=== PATIENT | male | born 1965 | race Caucasian/White ===

== ENCOUNTER 2017-08-26 22:48 | Emergency (ER) | payer OTHER ==
[2017-08-26 22:56] VITALS: PULSE 88; RESP 18; TEMP 97.6; O2SAT 99
[2017-08-26 23:54] LABS: AUTOMATED NEUTROPHIL # 8.5 TH/MM3 (1.8-7.7); BASOPHIL # 0.1 TH/MM3 (0-0.2); BASOPHIL % 0.5 % (0.0-2.0); EOSINOPHIL # 0.1 TH/MM3 (0-0.4); HEMATOCRIT 43.2 % (39.0-51.0); HEMOGLOBIN 15.1 GM/DL (13.0-17.0); LYMPH % 11.1 % (9.0-44.0); LYMPHOCYTE # 1.2 TH/MM3 (1.0-4.8); MEAN CELL VOLUME 93.6 FL (80.0-100.0); MEAN CORPUSCULAR HEMOGLOBIN 32.7 PG (27.0-34.0); MONO % 11.6 % (0.0-8.0); MONOCYTE # 1.3 TH/MM3 (0-0.9); NEUT % 75.8 % (16.0-70.0); PLATELET COUNT 167 TH/MM3 (150-450); RED BLOOD COUNT 4.62 MIL/MM3 (4.50-5.90); WHITE BLOOD COUNT 11.2 TH/MM3 (4.0-11.0)
[2017-08-27 00:14] LABS: ALBUMIN 4.6 GM/DL (3.4-5.0); AST (GOT) 22 U/L (15-37); BICARBONATE 23.1 MEQ/L (21.0-32.0); BLOOD UREA NITROGEN 13 MG/DL (7-18); CHLORIDE 102 MEQ/L (98-107); CREATININE 1.07 MG/DL (0.60-1.30); GLOMERULAR FILTRATION RATE 73 ML/MIN (>89); GLUCOSE,RANDOM 114 MG/DL (74-106); SODIUM (NA) 138 MEQ/L (136-145)
[2017-08-27 00:16] LABS: ALT (GPT) 34 U/L (12-78)
[2017-08-27 00:25] LABS: ALKALINE PHOSPHATASE 80 U/L (45-117); TOTAL BILIRUBIN ADULT 0.6 MG/DL (0.2-1.0); TOTAL PROTEIN 8.3 GM/DL (6.4-8.2)
[2017-08-27] MEDS ORDERED: THYRPOW PO (01:04)
[2017-08-27 02:35] VITALS: BP 123/77; PULSE 107; RESP 18; O2SAT 98
--- NOTE | 2017-08-27 06:07 | PD ---
HPI Chief Complaint: Psychiatric Symptoms Time Seen by Provider: 23:04 Travel History International Travel<30 days: No Contact w/Intl Traveler<30days: No Traveled to known affect area: No History of Present Illness HPI 52-year-old white male presents emergency department under a [place] act by PD. The patient had made homicidal statements while in a hotel. The patient here states that this was misconstrued. He states that he had never made any statements directly to hurt anyone or hurt himself. He denies any suicidal homicidal ideation. No toxic ingestions. He does admit to drinking alcohol earlier. No medical complaint. PFSH Past Medical History Medical History: Unable to Obtain Autoimmune Disease: Yes Anxiety: Yes (FEAR OF FLYING) Integumentary: Yes (PSORISIS) Thyroid Disease: Yes Tetanus Vaccination: < 5 Years ?: Not Past Surgical History Surgical History: Unable to Obtain Other Surgery: Yes (HERNIA REPAIR A CHILD) Social History Alcohol Use: Yes (DAILY) Tobacco Use: Yes Substance Use: Yes (NIGHTLY ALCOHOL) Allergies-Medications (Allergen,Severity, Reaction): Coded Allergies: bupropion (Verified Allergy, Unknown, 08/26/17) lisinopril (Verified Allergy, Unknown, 08/26/17) Reported Meds & Prescriptions Reported Meds & Active Scripts Active Reported Thyroid Porcine (Thyroid) 100 % [facility] Pow 75 Mg PO DAILY Review of Systems General / Constitutional: No: Fever Eyes: No: Visual changes HENT: No: Headaches Cardiovascular: No: Chest Pain or Discomfort Respiratory: No: Shortness of Breath Gastrointestinal: No: Abdominal Pain Genitourinary: No: Dysuria Musculoskeletal: No: Pain Skin: No Rash Neurologic: No: Weakness Psychiatric: Positive: Mood Disorder, No: Anxiety, Depression, Suicidal Ideations, Disorder of Thought, Substance Abuse, Homicidal Ideation Endocrine: No: Polydipsia Hematologic/Lymphatic: No: Easy Bruising Physical Exam Narrative GENERAL: Well-nourished, well-developed patient. SKIN: Warm and dry. HEAD: Normocephalic and atraumatic. EYES: No scleral icterus. No injection or drainage. ENT: No nasal drainage noted. Mucous membranes pink. Airway patent. NECK: Supple, trachea midline. Moves head freely without obvious discomfort. CARDIOVASCULAR: Regular rate and rhythm without murmurs, gallops, or rubs. RESPIRATORY: Breath sounds equal bilaterally. No accessory muscle use. GASTROINTESTINAL: Abdomen soft, non-tender, nondistended. EXTREMITIES: No cyanosis or edema. BACK: Nontender without obvious deformity. No CVA tenderness. NEURO: Patient is alert and oriented. no sensorimotor deficits. Nonfocal. Normal speech. PSYCH: No delusions. No auditory or visual hallucinations. Data Data Last Documented VS Vital Signs Date Time Temp Pulse Resp B/P (MAP) Pulse Ox O2 Delivery O2 Flow Rate FiO2 08/27/17 02:35 107 18 123/77 (92) 98 Room Air 08/26/17 22:56 97.6 Orders Orders Complete Blood Count With Diff (08/26/17 23:01) Comprehensive Metabolic Panel (08/26/17 23:01) Psych Screen (08/26/17 23:01) Drug Screen, Random Urine (08/26/17 23:01) Alcohol (Ethanol) (08/26/17 23:01) Thyroid Stimulating Hormone (08/26/17 23:25) Labs Laboratory Tests Test 08/26/17 23:20 08/26/17 23:25 Urine Opiates Screen NEG Urine Barbiturates Screen NEG Urine Amphetamines Screen NEG Urine Benzodiazepines Screen NEG Urine Cocaine Screen NEG Urine Cannabinoids Screen NEG White Blood Count 11.2 TH/MM3 Red Blood Count 4.62 MIL/MM3 Hemoglobin 15.1 GM/DL Hematocrit 43.2 % Mean Corpuscular Volume 93.6 FL Mean Corpuscular Hemoglobin 32.7 PG Mean Corpuscular Hemoglobin Concent 35.0 % Red Cell Distribution Width 13.0 % Platelet Count 167 TH/MM3 Mean Platelet Volume 8.0 FL Neutrophils (%) (Auto) 75.8 % Lymphocytes (%) (Auto) 11.1 % Monocytes (%) (Auto) 11.6 % Eosinophils (%) (Auto) 1.0 % Basophils (%) (Auto) 0.5 % Neutrophils # (Auto) 8.5 TH/MM3 Lymphocytes # (Auto) 1.2 TH/MM3 Monocytes # (Auto) 1.3 TH/MM3 Eosinophils # (Auto) 0.1 TH/MM3 Basophils # (Auto) 0.1 TH/MM3 CBC Comment DIFF FINAL Differential Comment Blood Urea Nitrogen 13 MG/DL Creatinine 1.07 MG/DL Random Glucose 114 MG/DL Total Protein 8.3 GM/DL Albumin 4.6 GM/DL Calcium Level 9.0 MG/DL Alkaline Phosphatase 80 U/L Aspartate Amino Transf (AST/SGOT) 22 U/L Alanine Aminotransferase (ALT/SGPT) 34 U/L Total Bilirubin 0.6 MG/DL Sodium Level 138 MEQ/L Potassium Level 3.6 MEQ/L Chloride Level 102 MEQ/L Carbon Dioxide Level 23.1 MEQ/L Anion Gap 13 MEQ/L Estimat Glomerular Filtration Rate 73 ML/MIN Thyroid Stimulating Hormone 3rd Gen 2.530 uIU/ML Ethyl Alcohol Level 177 MG/DL MDM Medical Decision Making Medical Screen Exam Complete: Yes Emergency Medical Condition: Yes Medical Record Reviewed: Yes Interpretation(s) Laboratory Tests Test 08/26/17 23:20 08/26/17 23:25 Urine Opiates Screen NEG Urine Barbiturates Screen NEG Urine Amphetamines Screen NEG Urine Benzodiazepines Screen NEG Urine Cocaine Screen NEG Urine Cannabinoids Screen NEG White Blood Count 11.2 TH/MM3 Red Blood Count 4.62 MIL/MM3 Hemoglobin 15.1 GM/DL Hematocrit 43.2 % Mean Corpuscular Volume 93.6 FL Mean Corpuscular Hemoglobin 32.7 PG Mean Corpuscular Hemoglobin Concent 35.0 % Red Cell Distribution Width 13.0 % Platelet Count 167 TH/MM3 Mean Platelet Volume 8.0 FL Neutrophils (%) (Auto) 75.8 % Lymphocytes (%) (Auto) 11.1 % Monocytes (%) (Auto) 11.6 % Eosinophils (%) (Auto) 1.0 % Basophils (%) (Auto) 0.5 % Neutrophils # (Auto) 8.5 TH/MM3 Lymphocytes # (Auto) 1.2 TH/MM3 Monocytes # (Auto) 1.3 TH/MM3 Eosinophils # (Auto) 0.1 TH/MM3 Basophils # (Auto) 0.1 TH/MM3 CBC Comment DIFF FINAL Differential Comment Blood Urea Nitrogen 13 MG/DL Creatinine 1.07 MG/DL Random Glucose 114 MG/DL Total Protein 8.3 GM/DL Albumin 4.6 GM/DL Calcium Level 9.0 MG/DL Alkaline Phosphatase 80 U/L Aspartate Amino Transf (AST/SGOT) 22 U/L Alanine Aminotransferase (ALT/SGPT) 34 U/L Total Bilirubin 0.6 MG/DL Sodium Level 138 MEQ/L Potassium Level 3.6 MEQ/L Chloride Level 102 MEQ/L Carbon Dioxide Level 23.1 MEQ/L Anion Gap 13 MEQ/L Estimat Glomerular Filtration Rate 73 ML/MIN Thyroid Stimulating Hormone 3rd Gen 2.530 uIU/ML Ethyl Alcohol Level 177 MG/DL Differential Diagnosis MDM: High Differential diagnoses: Schizophrenia, schizoaffective disorder, bipolar, anxiety, depression, adjustment reaction, mood disorder NOS, ODD, depressive disorder NOS, dementia, dementia with agitation, psychosis NOS, substance induced mood disorder, DMDD, Asperger syndrome, infection,electrolyte abnormality, malingering. Narrative Course Mental health screening discussed with the patient. Psychiatric screen ordered. The patient has been medically cleared. This is medical clearance for psychiatric admission, alcohol intoxication Diagnosis Primary Impression: Medical clearance for psychiatric admission Additional Impression: Alcohol intoxication Condition: Stable Todd Ellison Aug 27, 2017 06:07
--- NOTE | 2017-08-27 14:35 | PD.PSY.CON ---
Provisional Diagnosis Admission Date [place] I. Alcohol induced mood disorder, alcohol use disorder [place] II. Deferred [place] III. Hypertension History of Present Illness Service Psychiatry Consult Requested By ER Reason for Consult Homicidal statements Primary Care Physician No Primary Care Physician HPI Patient was seen today at 11 AM in the morning. The patient is a 52-year-old man, his domiciled in [place], single, employed, he is here in the [facility] for vacations, patient has no previous psychiatric history, no previous suicidal attempts, no previous psychiatric hospitalizations, he does have history of alcohol use disorder, medical history hypertension, who presents in the emergency department under a [place] act by PD. The patient had made homicidal statements while in a hotel in the context of alcohol intoxication. The patient here states that this was misconstrued. He states that he had never made any statements directly to hurt anyone or hurt himself. He denies any suicidal homicidal ideation. No toxic ingestions. He does admit to drinking alcohol earlier. No medical complaint. On psychiatric evaluation the patient is found in his room, he seems to be upset, irritable, a little bit oppositional. He says that being in a psychiatric singh is a ridiculous thing. He says that he never made any homicidal statement. He says that he was drunk and he was just joking with somebody in the hotel. The patient denies depressive symptoms, he denies anxiety, he denies purnima and psychosis. He denies suicidal and homicidal ideation, he denies visual and auditory hallucinations. 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 He denies history of violence, he denies guns possession, he says that he is only contact with law in the past was for a DUI. We got collateral information from his brother Florian Infante and support from his sister Miss Infante, who lives here in [place]. They both say that the patient does not have any history of violence. The patient is a [place] person , he doesn't have any psychiatric history. He does abuse alcohol and he does "say stupid things on the alcohol intoxication". They don't think that his brother is able to execute any homicidal action. His sister who lives here in [place] is going to come personality from her house to strip picker the patient and make sure that he is going back safely home. Review of Systems Constitutional: DENIES: Diaphoretic episodes, Fatigue, Fever, Weight gain, Weight loss, Chills, Dizziness, Change in appetite, Night Sweats Endocrine: DENIES: Heat/cold intolerance, Polydipsia, Polyuria, Polyphagia Eyes: DENIES: Blurred vision, Diplopia, Eye inflammation, Eye pain, Vision loss , Photosensitivity, Double Vision Ears, nose, mouth, throat: DENIES: Tinnitus, Hearing loss, Vertigo, Nasal discharge, Oral lesions, Throat pain, Hoarseness, Ear Pain, Running Nose, Epistaxis, Sinus Pain, Toothache, Odynophagia Respiratory: DENIES: Apneas, Cough, Snoring, Wheezing, Hemoptysis, Sputum production, Shortness of breath Cardiovascular: DENIES: Chest pain, Palpitations, Syncope, Dyspnea on Exertion , PND, Lower Extremity Edema, Orthopnea, Claudication Gastrointestinal: DENIES: Abdominal pain, Black stools, Bloody stools, Constipation, Diarrhea, Nausea, Vomiting, Difficulty Swallowing, Anorexia Genitourinary: DENIES: Sexual dysfunction, Urinary frequency, Urinary incontinence, Urgency, Hematuria, Dysuria, Nocturia, Penile Discharge, Testicular Pain, Testicular Swelling Musculoskeletal: DENIES: Joint pain, Muscle aches, Stiffness, Joint Swelling, Back pain, Neck pain Integumentary: DENIES: Abnormal pigmentation, Nail changes, Pruritus, Rash Hematologic/lymphatic: DENIES: Bruising, Lymphadenopathy Immunologic/allergic: DENIES: Eczema, Urticaria Neurologic: DENIES: Abnormal gait, Headache, Localized weakness, Paresthesias, Seizures, Speech Problems, Tremor, Poor Balance Psychiatric: DENIES: Anxiety, Confusion, Mood changes, Depression, Hallucinations, Agitation, Suicidal Ideation, Homicidal Ideation, Delusions Past Family Social History Coded Allergies: bupropion (Verified Allergy, Unknown, 08/26/17) lisinopril (Verified Allergy, Unknown, 08/26/17) Reported Medications Thyroid (Thyroid Porcine) 100 % [facility] Pow, 75 MG PO DAILY 08/27/17 Family Psych History No family psychiatric history Social History Patient was born and raised in [place], he lives in [place], his single, no kids , employed, highest level of education is a bachelor degree. Patient's Strengths (min. 2) No tremors, no EPS, no withdrawal Physical Exam Vital Signs Vital Signs Date Time Temp Pulse Resp B/P (MAP) Pulse Ox O2 Delivery O2 Flow Rate FiO2 08/27/17 02:35 107 18 123/77 (92) 98 Room Air 08/26/17 22:56 97.6 Lab Results Test 08/26/17 23:20 08/26/17 23:25 Urine Opiates Screen NEG Urine Barbiturates Screen NEG Urine Amphetamines Screen NEG Urine Benzodiazepines Screen NEG Urine Cocaine Screen NEG Urine Cannabinoids Screen NEG White Blood Count 11.2 TH/MM3 Red Blood Count 4.62 MIL/MM3 Hemoglobin 15.1 GM/DL Hematocrit 43.2 % Mean Corpuscular Volume 93.6 FL Mean Corpuscular Hemoglobin 32.7 PG Mean Corpuscular Hemoglobin Concent 35.0 % Red Cell Distribution Width 13.0 % Platelet Count 167 TH/MM3 Mean Platelet Volume 8.0 FL Neutrophils (%) (Auto) 75.8 % Lymphocytes (%) (Auto) 11.1 % Monocytes (%) (Auto) 11.6 % Eosinophils (%) (Auto) 1.0 % Basophils (%) (Auto) 0.5 % Neutrophils # (Auto) 8.5 TH/MM3 Lymphocytes # (Auto) 1.2 TH/MM3 Monocytes # (Auto) 1.3 TH/MM3 Eosinophils # (Auto) 0.1 TH/MM3 Basophils # (Auto) 0.1 TH/MM3 CBC Comment DIFF FINAL Differential Comment Blood Urea Nitrogen 13 MG/DL Creatinine 1.07 MG/DL Random Glucose 114 MG/DL Total Protein 8.3 GM/DL Albumin 4.6 GM/DL Calcium Level 9.0 MG/DL Alkaline Phosphatase 80 U/L Aspartate Amino Transf (AST/SGOT) 22 U/L Alanine Aminotransferase (ALT/SGPT) 34 U/L Total Bilirubin 0.6 MG/DL Sodium Level 138 MEQ/L Potassium Level 3.6 MEQ/L Chloride Level 102 MEQ/L Carbon Dioxide Level 23.1 MEQ/L Anion Gap 13 MEQ/L Estimat Glomerular Filtration Rate 73 ML/MIN Thyroid Stimulating Hormone 3rd Gen 2.530 uIU/ML Ethyl Alcohol Level 177 MG/DL Mental Status Examination Appearance: Appropriate Consciousness: Alert Orientation: x4 Motor Activity: Normal gait Speech: Unremarkable Language: Adequate Fund of Knowledge: Adequate Attention and Concentration: Adequate Memory: Unremarkable Mood: Appropriate Affect: Appropriate Thought Process & Associations: Intact Thought Content: Appropriate Hallucination Type: None Delusion Type: None Suicidal Ideation: No Suicidal Plan: No Suicidal Intention: No Homicidal Ideation: No Homicidal Plan: No Homicidal Intention: No Insight: Adequate Judgment: Adequate Assessment & Plan Problem List: (1) Alcohol abuse with alcohol-induced mood disorder ICD Codes: F10.14 - Alcohol abuse with alcohol-induced mood disorder Assessment & Plan: On psychiatric evaluation with find the patient is now clinically sober. She denies symptomatology of depression, anxiety, purnima and psychosis. The patient denies suicidal and homicidal ideation, he denies visual and auditory hallucinations. During my evaluation no agitation, no aggressive behavior, no delusion, no loosening of associations, ideas of reference, paranoia, attention deficit are present. The patient is fully oriented 3, logical, coherent and relevant. Seems to me that his reason homicidal statement in the hotel was made in the context of acute alcohol intoxication. This is a patient who allegedly doesn't have any psychiatric history, no history of violence, no guns pulsation, this information was confirmed by his 2 siblings. He does not meet criteria for involuntary psychiatric admission at this moment. Extensive psychoeducation, supportive motivation provided. The patient will be discharged with his sister. Leiva act will be lifted. Assessment & Plan Estimated LOS: Kareem Genao MD Aug 27, 2017 14:34
[2017-08-27 18:38] VITALS: BP 146/97; PULSE 72; RESP 18; TEMP 98.8; O2SAT 99
== END 2017-08-27 23:06 | disposition home or self-care (01) ==
LOC: NEPJ 22:48
DX: F10.129 Alcohol abuse with intoxication, unspecified (principal); E07.9 Disorder of thyroid, unspecified; Y90.6 Blood alcohol level of 120-199 mg/100 ml; Z72.0 Tobacco use; Z79.899 Other long term (current) drug therapy
CPT/HCPCS: 80053; 80307; 84443; 85025; 99283